=== PATIENT | female | born 1995 | race Hispanic/Latino ===

== ENCOUNTER 2018-05-03 06:45 | Outpatient (CLI) | payer BC ==
--- NOTE | 2018-05-03 08:07 | ULT ---
RIGHT UPPER QUADRANT ULTRASOUND: INDICATIONS: Epigastric abdominal pain in this 22-year-old female. FINDINGS: No focal hepatic lesion is evident. The visualized gallbladder is normal appearing. The pancreas appears within normal limits. No sonographic Hamilton sign is reported. The common bile duct measures 3.5 mm. The right kidney measures 10.4 cm in length without evidence of hydronephrosis or focal renal lesion. IMPRESSION: No acute sonographic abnormality. POS: [facility]
== END 2018-05-03 06:46 | disposition home or self-care (01) ==
LOC: BICULT 06:45
PROVIDERS: ATTEND Physician Assistant Medical
DX: K52.832 Lymphocytic colitis (principal); K52.9 Noninfective gastroenteritis and colitis, unspecified; R10.13 Epigastric pain
CPT/HCPCS: 76705

== ENCOUNTER 2019-03-25 08:04 | Outpatient (CLI) | payer BC ==
--- NOTE | 2019-03-25 08:31 | ULT ---
US Gallbladder RUQ: 03/25/2019 12:00 AM CLINICAL HISTORY: Epigastric abdominal pain. STUDY: Limited right upper quadrant ultrasound of abdomen. COMPARISON: 05/03/2018 FINDINGS: Liver: Size: Normal. Echogenicity: Normal. Contour: Smooth. Mass: None. Bile ducts: No intrahepatic or extrahepatic biliary dilatation. Common bile duct measures 2 mm. Gallbladder: Normal. Pancreas: Head, body, and tail appear normal. Right kidney: No pelvicalyceal dilatation. Right kidney measuring 10.0 cm in length. IMPRESSION: Unremarkable exam.
== END 2019-03-25 08:05 | disposition home or self-care (01) ==
LOC: BICULT 08:04
PROVIDERS: ATTEND Internal Medicine Gastroenterology
DX: R10.13 Epigastric pain (principal); K52.832 Lymphocytic colitis; M25.50 Pain in unspecified joint; R63.5 Abnormal weight gain
CPT/HCPCS: 76705